=== PATIENT | male | born 1950 | race Caucasian/White ===

== ENCOUNTER 2016-05-28 11:59 | Day surgery (SDC) | payer OTHER, MEDICARE ==
[2016-05-28] VITALS (31 sets, daily range): BP systolic 122–170; BP diastolic 66–88; PULSE 85–117; RESP 12–25; TEMP 97.6–98.4; O2SAT 88–96; Ht 172.7 cm; Wt 93.6 kg
[~2016-05-28] VITALS: Ht 172.7 cm; Wt 93.6 kg
[~2016-05-28 11:59] MED LIST: ATOR20TA18 PO; ERTAPENEM 1 G in NORMAL SALINE 100 ML IV ONE; LIDOCAINE 1% (10mg/ml) 2ml SDV INJ ONE; LR 1,000 ML IV SCH; OMEP-29 PO
--- OUTSIDE RECORDS SUMMARY | 2016-05-28 12:04 | XMS REPORT | Referral Summary ---
Author Author [facility], Family Medicine Organization [facility] Address Unknown Phone Unavailable Care Team Providers Care Leg Breaker Name Role Phone Eleazar Washington Primary Care Physician [phone] Encounter VC Date(s): 12/06/15 - 12/06/15 [facility] [address] [place] [id number] Discharge Diagnosis: Mixed hyperlipidemia Discharge Diagnosis: Hamstring injury Discharge Diagnosis: Claudication, intermittent Discharge Disposition: 01-Home or Self Care Attending Physician: Eleazar Washington DO Admitting Physician: Eleazar Washington DO Vital Signs Most recent to 1 oldest [Reference Range]: Temperature Tympanic 36.2 degC [36.6-38.1 degC] *LOW* (12/06/15 1:20 PM) Peripheral Pulse 89 bpm Rate [60-100 bpm] (12/06/15 1:20 PM) Blood Pressure 117/68 mmHg [90-140/60-90 mmHg] (12/06/15 1:20 PM) Problem List Condition Effective Dates Status Health Status Informant Hyperlipidemia(Confi Active rmed) Hypertension(Confirm Active ed) Obesity(Confirmed) Active patient Allergies, Adverse Reactions, Alerts No Known Medication Allergies Medications acetaminophen as needed for pain, 0 Refill(s) Start Date: 10/05/14 Status: Ordered Aleve mg, Oral, as needed for pain, 0 Refill(s) Start Date: 09/20/14 Status: Ordered atorvastatin 20 mg oral tablet See Instructions, TAKE ONE TABLET BY MOUTH ONCE DAILY, # 90 tabs, 1 Refill(s), eRx: [id number], TAKE ONE TABLET BY MOUTH ONCE DAILY Start Date: 10/31/15 Status: Ordered CoQ10 mg, Oral, Daily, 0 Refill(s) Start Date: 09/20/14 Status: Ordered losartan 50 mg oral tablet See Instructions, TAKE ONE TABLET BY MOUTH ONCE DAILY, # 90 tabs, 1 Refill(s), eRx: [id number], TAKE ONE TABLET BY MOUTH ONCE DAILY Start Date: 10/31/15 Status: Ordered naproxen 500 mg oral tablet 500 mg 1 tabs, Oral, BID, X 30 days, # 60 tabs, 4 Refill(s), Pharmacy: [id number], 1 tabs Oral BID,x30 days Start Date: 12/06/15 Stop Date: 05/04/16 Status: Ordered vitamin E Oral, Daily, 0 Refill(s) Start Date: 09/20/14 Status: Ordered Results No data available for this section Immunizations Vaccine Date Refusal Reason tetanus/diphth/pertuss (Tdap) adult/adol 02/11/09 influenza virus vaccine, inactivated 11/11/13 Procedures Procedure Date Related Diagnosis Body Site S/P right inguinal herniorrhaphy 2012 Colonoscope 02/11/09 S/P left inguinal herniorrhaphy 1994 Social History Social History Type Response Smoking Status Never smoker Assessment and Plan Extracted from: Title: Office Visit Note Author: Eleazar Washington DO Date: 12/06/15 Assessment/Plan Claudication, intermittent 1. History is concerning for peripheral vascular disease 2. Doppler studies of lower extremities Ordered: Office Visit Level 4 Est [address] [facility] Venous Duplex Bilateral Hamstring injury 1. Continue with naproxen twice a day 2. May use Tylenol at thousand milligrams every 8 hours 3. May consider hamstring support 4. If Doppler studies are negative then we plan on sending him to physical therapy Mixed hyperlipidemia 1. Continue with atorvastatin as previous 2. Follow-up lab ordered, report is pending Ordered: CBC w/ Differential Comprehensive Metabolic Panel Hemoglobin A1c Lipid Panel Office Visit Level 4 Est 86507
--- OUTSIDE RECORDS SUMMARY | 2016-05-28 12:05 | XMS REPORT | Referral Summary ---
Author Author [facility] Organization [facility] Address Unknown Phone Unavailable Care Team Providers Care Dryer Feeder Name Role Phone Eleazar Washington Primary Care Physician [phone] Encounter Date(s): 09/20/14 - 09/20/14 [facility] [address] [place] [id number] Discharge Diagnosis: Spinal stenosis Discharge Diagnosis: Hyperlipidemia Discharge Diagnosis: Benign essential HTN Discharge Disposition: 01-Home or Self Care Attending Physician: Esvin Jackson MD Admitting Physician: Esvin Jackson MD Vital Signs Most recent to 1 oldest [Reference Range]: Temperature Tympanic 36.5 degC [36.6-38.1 degC] *LOW* (09/20/14 2:35 PM) Peripheral Pulse 76 bpm Rate [60-100 bpm] (09/20/14 2:35 PM) Respiratory Rate 16 br/min [14-20 br/min] (09/20/14 2:35 PM) Blood Pressure 134/74 mmHg [90-140/60-90 mmHg] (09/20/14 2:35 PM) Problem List Condition Effective Dates Status Health Status Informant Obesity(Confirmed) Active patient Allergies, Adverse Reactions, Alerts No Known Medication Allergies Medications acetaminophen as needed for pain, 0 Refill(s) Start Date: 10/05/14 Status: Ordered Aleve mg, Oral, as needed for pain, 0 Refill(s) Start Date: 09/20/14 Status: Ordered CoQ10 mg, Oral, Daily, 0 Refill(s) Start Date: 09/20/14 Status: Ordered Lipitor 20 mg oral tablet 20 mg 1 tabs, Oral, Daily, # 90 tabs, 3 Refill(s), [id number], 1 tabs Oral Daily Start Date: 10/05/14 Status: Ordered losartan 50 mg oral tablet 50 mg 1 tabs, Oral, Daily, # 90 tabs, 3 Refill(s), [id number], 1 tabs Oral Daily Start Date: 10/05/14 Status: Ordered vitamin E Oral, Daily, 0 Refill(s) Start Date: 09/20/14 Status: Ordered Results No data available for this section Immunizations Vaccine Date Refusal Reason tetanus/diphth/pertuss (Tdap) adult/adol 02/11/09 influenza virus vaccine, inactivated 11/11/13 Procedures Procedure Date Related Diagnosis Body Site Colonoscope 02/11/09 Social History Social History Type Response Smoking Status Never smoker Assessment and Plan Extracted from: Title: Office Visit Note Author: Esvin Jackson MD Date: 09/20/14 Assessment/Plan Benign essential HTN Blood pressure appears to be adequately controlled no change in treatment recommended one-year approval for DOT is given. Hyperlipidemia Chronic stable follow-up with regular PCP. Spinal stenosis Chronic stable no change in current treatment. DOT evaluation We will give him a one-year approval for his DOT. He is borderline on weight as part needing further evaluation per sleep apnea or sleep study. Encouraged to keep his weight under control. He is approved with wearing corrective lenses andfor one year because of his hypertension.
--- OUTSIDE RECORDS SUMMARY | 2016-05-28 12:05 | XMS REPORT | Referral Summary ---
Author Author [facility] Organization [facility] Address Unknown Phone Unavailable Care Team Providers Care Immersion Metalcleaner Name Role Phone Eleazar Washington Primary Care Physician [phone] Encounter Date(s): 09/15/15 - 09/15/15 [facility] [address] [place] 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 Discharge Disposition: 01-Home or Self Care Attending Physician: Frida Stone PA-C Admitting Physician: Frida Stone PA-C Vital Signs Most recent to 1 oldest [Reference Range]: Peripheral Pulse 85 bpm Rate [60-100 bpm] (09/15/15 2:34 PM) Blood Pressure 122/68 mmHg [90-140/60-90 mmHg] (09/15/15 2:34 PM) SpO2 96 % (09/15/15 2:34 PM) Problem List Condition Effective Dates Status [...] Daily, # 90 tabs, 3 Refill(s), [id number], 1 tabs Oral Daily Start Date: 10/05/14 Status: Ordered losartan 50 mg oral tablet 50 mg 1 tabs, Oral, Daily, # 90 tabs, 3 Refill(s), [id number], 1 tabs Oral Daily Start [...] smoker Assessment and Plan Extracted from: Title: Ambulatory Patient Education Author: Frida Stone PA-C Date : 09/15/15 Cardiovascular Dyslipidemia Dyslipidemia is an imbalance of the lipids in your blood. Lipids are waxy, fat- like proteins that your body needs in small amounts. Dyslipidemia often involves the lipids cholesterol or triglycerides. Common forms of dyslipidemia are: High levels of bad cholesterol (LDL cholesterol). LDL cholesterol is the type of cholesterol that causes heart disease. Low levels of good cholesterol (HDL cholesterol). HDL cholesterol is the type of cholesterol that helps protect against heart disease. High levels of triglycerides. Triglycerides are a fatty substance in the blood linked to a buildup of plaque on your arteries. RISK FACTORS Increased age. Having a family history of high cholesterol. Certain medicines, including control pills, diuretics, beta- blockers, and some medicines for depression. Smoking. Eating a high-fat diet. Being overweight. Medical conditions such as diabetes, polycystic ovary syndrome, , kidney disease, and hypothyroidism. Lack of regular exercise. SIGNS AND SYMPTOMS There are no signs or symptoms with dyslipidemia. DIAGNOSIS A simple blood test called a fasting blood test can be done to determine your level of: Total cholesterol. This is the combined number of LDL cholesterol and HDL cholesterol. A healthy number is lower than 200. LDL cholesterol. The goal number for LDL cholesterol is different for each person depending on risk factors. Ask your health care provider what your LDL cholesterol number should be. HDL cholesterol. A healthy level of HDL cholesterol is 60 or higher. A number lower than 40 for men or 50 for women is a danger sign. Triglycerides. A healthy triglyceride number is less than 150. TREATMENT Dyslipidemia is a treatable condition. Your health care provider will advise you on what type of treatment is best based on your age, your test results, and current guidelines. Treatment may include: Dietary changes. A dietitian may help you create a diet that is based on your risk factors, conditions, and lifestyle. Regular exercise. This can help lower your LDL cholesterol, raise your HDL cholesterol, and help with weight management. Check with your health care provider before beginning an exercise program. Most people should participate in 30 minutes of brisk exercise 5 days a week. Quitting smoking. Medicines to lower LDL cholesterol and triglycerides. If you have high levels of triglycerides, your health care provider may: Have you stop drinking alcohol. Have you restrict your fat intake. Have you eliminate refined sugars from your diet. Treat you for other conditions, such as underactive thyroid gland ( hypothyroidism) and high blood sugar (hyperglycemia). Your health care provider will monitor your lipid levels with regular blood tests. HOME CARE INSTRUCTIONS Eat a healthy diet. Follow any diet instructions if they were given to you by your health care provider. Maintain a healthy weight. Exercise regularly based on the recommendations of your health care provider. Do not use any tobacco products, including cigarettes, chewing tobacco, or electronic cigarettes. Take medicines only as directed by your health care provider. Keep all follow-up visits as directed by your health care provider. SEEK MEDICAL CARE IF: You are having possible side effects from your medicines. This information is not intended to replace advice given to you by your health care provider. Make sure you discuss any questions you have with your health care provider. Document Released: 02/02/2014 Document Revised: 02/18/2015 Document Reviewed: [facility] Patient Information 2016 [facility], [facility]. Family Medicine Hypertension Hypertension, commonly called high blood pressure, is when the force of blood pumping through your arteries is too strong. Your arteries are the blood vessels that carry blood from your heart throughout your body. A blood pressure reading consists of a higher number over a lower number, such as 110/72. The higher number (systolic) is the pressure inside your arteries when your heart pumps. The lower number (diastolic) is the pressure inside your arteries when your heart relaxes. Ideally you want your blood pressure below 120/80. Hypertension forces your heart to work harder to pump blood. Your arteries may become narrow or stiff. Having hypertension puts you at risk for heart disease, stroke, and other problems. RISK FACTORS Some risk factors for high blood pressure are controllable. Others are not. Risk factors you cannot control include: Race. You may be at higher risk if you are . Age. Risk increases with age. Gender. Men are at higher risk than women before age 45 years. After age 65, women are at higher risk than men. Risk factors you can control include: Not getting enough exercise or physical activity. Being overweight. Getting too much fat, sugar, calories, or salt in your diet. Drinking too much alcohol. SIGNS AND SYMPTOMS Hypertension does not usually cause signs or symptoms. Extremely high blood pressure (hypertensive crisis) may cause headache, anxiety, shortness of breath , and nosebleed. DIAGNOSIS To check if you have hypertension, your health care provider will measure your blood pressure while you are seated, with your arm held at the level of your heart. It should be measured at least twice using the same arm. Certain conditions can cause a difference in blood pressure between your right and left arms. A blood pressure reading that is higher than normal on one occasion does not mean that you need treatment. If it is not clear whether you have high blood pressure, you may be asked to return on a different day to have your blood pressure checked again. Or, you may be asked to monitor your blood pressure at home for 1 or more weeks. TREATMENT Treating high blood pressure includes making lifestyle changes and possibly taking medicine. Living a healthy lifestyle can help lower high blood pressure. You may need to change some of your habits. Lifestyle changes may include: Following the DASH diet. This diet is high in fruits, vegetables, and whole grains. It is low in salt, red meat, and added sugars. Keep your sodium intake below 2,300 mg per day. Getting at least 3045 minutes of aerobic exercise at least 4 times per week. Losing weight if necessary. Not smoking. Limiting alcoholic beverages. Learning ways to reduce stress. Your health care provider may prescribe medicine if lifestyle changes are not enough to get your blood pressure under control, and if one of the following is true: Your systolic blood pressure is above 150. Your diastolic blood pressure is above 90. You have diabetes, and your systolic blood pressure is over 140 or your diastolic blood pressure is over 85. You have heart disease or have had a stroke or heart attack, and your blood pressure is above 130 over 80, which is written as 130/80. HOME CARE INSTRUCTIONS Have your blood pressure rechecked as directed by your health care provider. Take medicines only as directed by your health care provider. Follow the directions carefully. Blood pressure medicines must be taken as prescribed. The medicine does not work as well when you skip doses. Skipping doses also puts you at risk for problems. Do not smoke. Monitor your blood pressure at home as directed by your health care provider. SEEK MEDICAL CARE IF: You think you are having a reaction to medicines taken. You have recurrent headaches or feel dizzy. You have swelling in your ankles. You have trouble with your vision. SEEK IMMEDIATE MEDICAL CARE IF: You develop a severe headache or confusion. You have unusual weakness, numbness, or feel faint. You have severe chest or abdominal pain. You vomit repeatedly. You have trouble breathing. MAKE SURE YOU: Understand these instructions. Will watch your condition. Will get help right away if you are not doing well or get worse. This information is not intended to replace advice given to you by your health care provider. Make sure you discuss any questions you have with your health care provider. Document Released: 01/28/2006 Document Revised: 02/18/2015 Document Reviewed: [employer] Patient Information 2016 [employer]. No follow up information was provided. 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 Paperwork filled out and copies made. Ordered: Office Visit No Charge- 3044 Hyperlipidemia No issues with medication. F/u with PCP. Ordered: Office Visit No Charge- 3048 Hypertension D/w pt that he needs to talk with his PCP about the cough with ARB. BP is stable. Ordered: Office Visit No Charge- 3045
--- OUTSIDE RECORDS SUMMARY | 2016-05-28 12:05 | XMS REPORT | Referral Summary ---
Author Author [facility] Organization [facility] Address Unknown Phone Unavailable Care Team Providers Care Hair Assistant Name Role Phone Eleazar Washington Primary Care Physician [phone] Encounter VC Date(s): 12/28/15 - 12/28/15 [facility], [address] [place] [address] Discharge Diagnosis: Acute bacterial bronchitis Discharge Disposition: 01-Home or Self Care Attending Physician: Eleazar Washington DO Vital Signs Most recent to 1 oldest [Reference Range]: Temperature Tympanic 37.3 degC [36.6-38.1 degC] (12/28/15 2:18 PM) Peripheral Pulse 99 bpm Rate [60-100 bpm] (12/28/15 2:18 PM) Blood Pressure 142/80 mmHg [90-140/60-90 mmHg] *HI* (12/28/15 2:18 PM) SpO2 94 % (12/28/15 2:18 PM) Problem List Condition Effective Dates Status [...] DAILY, # 90 tabs, 1 Refill(s), eRx: [id number], TAKE ONE TABLET BY MOUTH ONCE DAILY Start Date: 10/31/15 Status: Ordered CoQ10 mg, Oral, Daily, 0 Refill(s) Start Date: 09/20/14 Status: Ordered losartan 50 mg oral tablet See Instructions, TAKE ONE TABLET BY MOUTH ONCE DAILY, # 90 tabs, 1 Refill(s), eRx: [id number], TAKE ONE TABLET BY MOUTH ONCE DAILY Start Date: 10/31/15 Status: Ordered naproxen 500 mg oral tablet 500 mg 1 tabs, Oral, BID, X 30 days, # 60 tabs, 4 Refill(s), Pharmacy: [id number], 1 tabs Oral BID,x30 days Start Date: 12/06/15 Stop Date: 05/04/16 Status: Ordered predniSONE 20 mg oral tablet 40 mg 2 tabs, Oral, Daily, X 5 days, # 10 tabs, 0 Refill(s) Start Date: 12/28/15 Stop Date: 01/02/16 Status: Ordered Promethazine with Codeine 6.25 mg-10 mg/5 mL oral syrup 2.5 mL, Oral, q6hr, as needed for cough, not to exceed 30 mL/24 hours, # 120 mL , 0 Refill(s) Start Date: 12/28/15 Stop Date: 01/27/16 Status: Ordered Tessalon 200 mg oral capsule 200 mg 1 caps, Oral, TID, X 10 days, # 30 caps, 0 Refill(s) Start Date: 12/28/15 Stop Date: 01/07/16 Status: Ordered vitamin E Oral, Daily, 0 [...] Visit Note Author: Eleazar Washington DO Date: 12/28/15 Assessment/Plan Acute bacterial bronchitis 1. Z-Guido, take as directed for 5 days. 2. Prednisone 20mg, two tabs daily for 5 days. 3. Tessalon 200mg, one tab tid for 10 days 4. Promethazine with codeine, 5 mls every 6 hours as needed for coughing. Mainly for nighttime use. Ordered: benzonatate, 200 mg 1 caps, Oral, TID, X 10 days, # 30 caps, 0 Refill(s) predniSONE, 40 mg 2 tabs, Oral, Daily, X 5 days, # 10 tabs, 0 Refill(s) promethazine-codeine, 2.5 mL, Oral, q6hr, as needed for cough, not to exceed 30 mL/24 hours, # 120 mL, 0 Refill(s) Office Visit Level 4 Est 50190
--- OUTSIDE RECORDS SUMMARY | 2016-05-28 12:05 | XMS REPORT | Referral Summary ---
Author Author [facility], Family Medicine Organization [facility] Address Unknown Phone Unavailable Care Team Providers Care Account Receivable Clerk Name Role Phone Eleazar Washington Primary Care Physician [phone] Encounter VC Date(s): 10/05/14 - 10/05/14 [facility], [address] [place] [phone]- Discharge Diagnosis: Adult general medical examination Discharge Diagnosis: HTN (hypertension) Discharge Diagnosis: Combined hyperlipidemia Discharge Disposition: 01-Home or Self Care Attending Physician: Eleazar Washington DO Admitting Physician: Eleazar Wasihngton DO Vital Signs Most recent to 1 oldest [Reference Range]: Temperature Tympanic 37.1 degC [36.6-38.1 degC] (10/05/14 8:45 AM) Peripheral Pulse 84 bpm Rate [60-100 bpm] (10/05/14 8:45 AM) Blood Pressure 128/74 mmHg [90-140/60-90 mmHg] (10/05/14 8:45 AM) Problem List Condition Effective Dates Status Health [...] Daily, # 90 tabs, 3 Refill(s), [id number], 1 tabs Oral Daily Start Date: 10/05/14 Status: Ordered losartan 50 mg oral tablet 50 mg 1 tabs, Oral, Daily, # 90 tabs, 3 Refill(s), Pharmacy: [facility] [id number], 1 tabs Oral Daily Start Date: 10/05/14 Status: Ordered vitamin E Oral, Daily, 0 Refill(s) Start Date: 09/20/14 Status: Ordered Results Hematology Most recent to 1 oldest [Reference Range]: WBC [4.8-10.8 8.4 10*3/uL 10*3/uL] (10/05/14 9:50 AM) RBC [4.60-6.20] 4.80 (10/05/14 9:50 AM) Hgb [14.0-18.0 14.8 gm/dL gm/dL] (10/05/14 9:50 AM) Hct [42.0-52.0 %] 42.7 % (10/05/14 9:50 AM) MCV [82.0-99.0 fL] 89.0 fL (10/05/14 9:50 AM) MCH [27.0-32.0 pg] 30.8 pg (10/05/14 9:50 AM) MCHC [32.0-36.0 34.7 gm/dL gm/dL] (10/05/14 9:50 AM) RDW [11.5-14.5 %] 13.0 % (10/05/14 9:50 AM) Platelet [150-400 242 10*3/uL 10*3/uL] (10/05/14 9:50 AM) MPV [8.8-14.8 fL] 9.6 fL (10/05/14 9:50 AM) Immature 0.4 % Granulocytes (10/05/14 9:50 AM) [0.0-1.0 %] Neutrophils [51-75 60 % %] (10/05/14 9:50 AM) Lymphocytes [20-46 25 % %] (10/05/14 9:50 AM) Monocytes [4-11 %] 10 % (10/05/14 9:50 AM) Eosinophils [0-4 %] 4 % (10/05/14 9:50 AM) Basophils [0-2 %] 0 % (10/05/14 9:50 AM) Neutro Absolute 5.02 10*3 [1.90-7.00 10*3] (10/05/14 9:50 AM) Lymph Absolute 2.09 10*3 [0.80-3.30 10*3] (10/05/14 9:50 AM) [place] Absolute 0.84 10*3 [0.30-1.00 10*3] (10/05/14 9:50 AM) Eos Absolute 0.34 10*3 [0.00-0.50 10*3] (10/05/14 9:50 AM) Baso Absolute 0.03 10*3 [0.00-0.20 10*3] (10/05/14 9:50 AM) Chemistry Most recent to 1 oldest [Reference Range]: Sodium Lvl [135-144 138 mEq/L mEq/L] (10/05/14:50 AM) Potassium Lvl 4.3 mEq/L [3.5-5.2 mEq/L] (10/05/14 9:50 AM) Chloride [99-111 105 mEq/L mEq/L] (10/05/14:50 AM) CO2 [23-31 mEq/L] 30 mEq/L (10/05/14:50 AM) AGAP [3-20] 3 (10/05/14 9:50 AM) BUN [8-26 mg/dL] 16 mg/dL (10/05/14 9:50 AM) Glucose Lvl [70-99 106 mg/dL mg/dL] *HI* (10/05/14 9:50 AM) Creatinine Lvl 0.92 mg/dL [0.72-1.25 mg/dL] (10/05/14 9:50 AM) eGFR [>60 mL/min] >60 mL/min 1 (10/05/14:50 AM) Calcium Lvl 9.2 mg/dL [8.9-10.5 mg/dL] (10/05/14 9:50 AM) Albumin Lvl [3.4-4.8 4.3 gm/dL gm/dL] (10/05/14 9:50 AM) Total Protein 6.7 gm/dL [6.2-8.1 gm/dL] (10/05/14 9:50 AM) Globulin [1.8-4.0 2.4 gm/dL gm/dL] (10/05/14 9:50 AM) ALT [0-55 U/L] 20 U/L (10/05/14 9:50 AM) AST [5-34 U/L] 19 U/L (10/05/14 9:50 AM) Alk Phos [40-150 56 U/L U/L] (10/05/14 9:50 AM) Bili Total [0.2-1.2 0.9 mg/dL mg/dL] (10/05/14 9:50 AM) PSA (wihout Reflex 0.5 ng/mL 2 Free) [0.0-4.5 (10/05/14 9:50 AM) ng/mL] Chol [0-199 mg/dL] 182 mg/dL (10/05/14 9:50 AM) Trig [0-149 mg/dL] 145 mg/dL (10/05/14 9:50 AM) HDL [40-84 mg/dL] 35 mg/dL *LOW* (10/05/14 9:50 AM) LDL [0-130 mg/dL] 118 mg/dL (10/05/14 9:50 AM) VLDL Cholesterol 29 mg/dL [0-28 mg/dL] *HI* (10/05/14 9:50 AM) Cardiac Risk 5.2 [0.0-5.7] (10/05/14 9:50 AM) Hgb A1c [4.1-5.6 %] 5.9 % *HI* (10/05/14 9:50 AM) eAvg Glucose 122.6 mg/dL (10/05/14 9:50 AM) 1Result Comment: Multiply eGFR results by 1.21 for race. 2Result Comment: AUA PSA Best Practice Guidelines: Age-Adjusted PSA Values by Ethnic Group Age Range Asians - Caucasians Americans 40-49 0-2.0 0-2.0 0-2.5 50-59 0-3.0 0-4.0 0-3.5 60-69 0-4.0 0-4.5 0-4.5 70-79 0-5.0 0-5.5 0-6.5 Immunizations Vaccine Date Refusal Reason tetanus/diphth/pertuss (Tdap) adult/adol 02/11/09 influenza virus vaccine, inactivated 11/11/13 Procedures Procedure Date Related Diagnosis Body Site Collection of venous blood by venipuncture 10/05/14 Colonoscope 02/11/09 Social History Social History Type Response Smoking Status Never smoker Assessment and Plan Extracted from: Title: 64 yo Wellness exam Author: Eleazar Washington DO Date: 10/05/14 Assessment/Plan Adult general medical examination 1. This is a well-developed well- nourished 64-year-old gentleman in good health. 2. His next colonoscopy will be due in 5 years. 3. Recommended flu vaccination on a yearly basis. 4. Recommended consideration of shingles vaccination, he was check with his insurance and coverage. 5. Healthy lifestyle with balanced diet and daily exercise recommended, he voiced understanding. 6. Follow-up yearly for well male exam. 7. Labs ordered today to consist of CBC, comprehensive metabolic profile, lipid panel, hemoglobin A1c and PSA. Once we get the results we will discuss with the patient and notify him whenI would like himto follow-up. Over 45 minutes was spent face-face with this patient. More than 50% of the time was spent reviewing his medical history, medications and with recommendations. Ordered: Office Visit Level 5 Est 38127 Combined hyperlipidemia Pathophysiology of this presentation. All questions were answered. 1. Lipid panel ordered today, we will adjust his medication accordingly. 2. Atorvastatin was refilled for one year. Ordered: Office Visit Level 5 Est 06553 HTN (hypertension) Pathophysiology of this presentation. All questions were answered. 1. His blood pressures well controlled today. 2. Continue with current medication, follow-up yearly for the pressure management. 3. Healthy lifestyle changes recommended with healthy balanced diet and daily exercise. 4. Low salt diet recommended. 5. Weight loss recommended. Ordered: CBC w/ Differential Comprehensive Metabolic Panel Hemoglobin A1c Lipid Panel Office Visit Level 5 Est 33656 Prostate Specific Antigen Orders: atorvastatin, 20 mg 1 tabs, Oral, Daily, # 30 tabs, 0 Refill(s), Pharmacy: [id number], 1 tabs Oral Daily losartan, 50 mg 1 tabs, Oral, Daily, # 30 tabs, 0 Refill(s), Pharmacy: [facility] [id number], 1 tabs Oral Daily
--- OUTSIDE RECORDS SUMMARY | 2016-05-28 12:05 | XMS REPORT | Continuity of Care Document ---
Author Author [facility] Organization [facility] Address Unknown Phone Unavailable Allergies Active Description Code Type Severity Reaction Onset Reported/Identified Relationship to Patient Clinical Status Yes ibuprofen Drug Allergy Unknown 01/26/2011 Yes Penicillins Drug Allergy Unknown 01/26/2011 Yes No Known Medication Allergies NKMA N/A N/A 09/20/2014 Medications Problems Procedures Results Test Result Range Comprehensive Metabolic Panel (CMP) - 05/17/16 05:25 Albumin 4.0 g/dL 3.5-4.8 Alkaline Phosphatase 49 U/L 26-104 ALT (SGPT) 16 U/L 17-63 Anion Gap 12 NA 3-20 AST (SGOT) 21 U/L 15-41 Bilirubin Total 0.8 mg/dL 0.2-1.2 BUN 18 mg/dL 4-20 Calcium 8.9 mg/dL 8.6-10.0 Chloride 105 mEq/L 99-109 CO2 21 mEq/L 22-32 Creatinine 0.93 mg/dL 0.64-1.27 Globulin 2.4 g/dL 1.9-4.3 Glucose 140 mg/dL 70-100 Potassium 3.9 mEq/L 3.6-5.1 Protein 6.4 g/dL 6.1-7.9 Sodium 138 mEq/L 136-144 Lipase - 05/17/16 05:25 Lipase 14 U/L 8-48 eGFR - 05/17/16 05:25 eGFR >60 NA >60 CBC With Platelet and Differential - 05/17/16 06:30 Absolute Basophils 0.02 10*3/uL 0.00- 0.20 Absolute Eosinophils 0.30 10*3/uL 0.00- 0.50 Absolute Lymphocytes 0.94 10*3/uL 0.80- 3.30 Absolute Monocytes 1.08 10*3/uL 0.30- 1.00 Absolute Neutrophils 8.96 10*3/uL 1.90- 7.00 Basophils 0 % 0-2 Eosinophils 3 % 0-4 HCT 39.5 % 42.0-52.0 HGB 13.2 g/dL 14.0-18.0 Immature Granulocytes 0.3 % 0.0-1.0 Lymphocytes 8 % 20-46 MCH 30.5 pg 27.0-32.0 MCHC 33.4 g/dL 32.0-36.0 MCV 91.2 fL 82.0-99.0 Monocytes 10 % 4-11 MPV 9.3 fL 9.4-12.3 Neutrophils 79 % 51-75 Nucleated RBC Automated 0.0 /100 WBC Platelet Count 209 K/uL 150-400 RBC 4.33 10*6/uL 4.60-6.20 RDW 12.7 % 11.5-14.5 WBC 11.3 K/uL 4.8-10.8 Urinalysis with reflex microscopic - 05/17/16 07:31 Appearance Clear NA Bilirubin Negative NA Negative Blood Pos 1+ NA Negative Color Yellow NA Glucose, Urine Negative Negative Ketones Negative Negative Leukocyte Esterase Negative NA Negative Nitrites Negative NA Negative pH 5.0 NA 5.0-8.0 Protein Negative NA Negative Specific [place] 1.015 NA 1.003-1.030 UA Collection type Clean Catch NA Urobilinogen Negative mg/dL <1.0 Urine Microscopic - 05/17/16 07:31 Bacteria None Seen NA Epithelial Cells 0 /HPF RBC, Urine 0 /HPF 0-2 WBC, Urine 2 /HPF 0-4 Encounters ACCT No. Visit Date/Time Discharge Status Pt. Type Provider Facility Loc./Unit Complaint [id number] 03/17/2012 13:00:00 2012 23:59:59 CLS Outpatient Tulio Prescott, [facility] PAIN [id number] 03/03/2012 13:30:00 2012 23:59:59 CLS Outpatient Tulio Prescott [facility] PAIN [id number] 01/29/2012 15:20:00 2011 23:59:59 CLS Outpatient Surinder MALDONADO, [facility] HMG.ORT [id number] 11/30/2011 11:26:00 2011 23:59:00 DIS Outpatient Joan Gee DO [facility] IMG.MRI [id number] 11/27/2011 10:56:00 2011 23:59:00 DIS Outpatient Joan Gee DO [facility] IMG.RAD
[2016-05-28] MEDS ORDERED: ONDA4TAB4 PO (13:31)
[2016-05-28] MEDS ORDERED: LOSA50TA52 PO (13:31)
[2016-05-28] MEDS ORDERED: BUPIVACAINE 0.25%/EPI 1:200,000 30ml SDV ONE (13:55)
[2016-05-28] MEDS ORDERED: SALINE FLUSH 10ml SYRINGE ONE ×2 (13:56→15:47)
[2016-05-28] MEDS ORDERED: LIDOCAINE 2% (20mg/ml) 5ml PF SDV ONE (15:13)
[2016-05-28] MEDS ORDERED: ROCURONIUM 50mg/5ml INJECTION IV ONE ×2 (15:13→16:46)
[2016-05-28] MEDS ORDERED: PROPOFOL 200mg 20 ML IV ONE (15:13)
--- NOTE | 2016-05-28 15:13 | ANESPREOP ---
Anesthesia Record Date and Time DATE: 05/28/16 TIME: 15:12 Proposed Surgical Procedure ROBOTIC ASSISTED LAP. DESMOND NPO since: mn Allergies: Coded Allergies: hydrocodone (Verified Adverse Reaction, Unknown, UPSET STOMACH, 05/28/16) ibuprofen (Verified Adverse Reaction, Unknown, UPSET STOMACH, 05/28/16) Uncoded Allergies: PEN VK (Allergy, Unknown, RASH, 05/25/16) Ht/Wt/BMI Height: 5 ' 8.00 " Weight: 91.700 kg BMI: 30.7 kg/m2 Vital Signs Date Time Temp Pulse Resp B/P Pulse Ox O2 Delivery O2 Flow Rate FiO2 05/28/16 13:01 98.1 85 16 153/78 94 Room Air Medications Inpatient Medications Current Medications Medications (Trade) Dose Ordered Sig/Alexandru Start Time Stop Time Status Last Admin Dose Admin Lactated Ringer's (Lactated Ringers) 1,000 ml @ 30 mls/hr Q24H 05/28/16 07:00 05/28/16 14:15 30 MLS/HR Atorvastatin Calcium (Lipitor) 20 Mg Tablet, 20 MG PO HS, (Reported) Last Taken: on 05/25/16 0700 Losartan Potassium (Losartan Potassium) 50 Mg Tablet, 50 MG PO DAILY, (Reported) Last Taken: on 05/28/16 0700 Omeprazole (Prilosec) 20 Mg Capsule.dr, 20 MG PO PRN, (Reported) Last Taken: on Unknown Date & Time Ondansetron HCl (Zofran) 4 Mg Tablet, 4 MG PO Q6H PRN for NAUSEA, (Reported) Last Taken: on 05/27/16 0700 Currently on Beta Danna: No Medical/Surgical History Anesthesia PMH: Reports: *Hypertension (TAKES MEDS), Hiatal Hernia, Obesity, Reflux (IMPROVED, TAKES MED PRN) Smoking Status: Never smoker Use Chewing Tobacco?: No Second Hand Exposure: No Substance Use Type: does not use Alcohol Intake: rarely Past Surgical History Orthopedic Surgeries: No Abdominal Surgeries: Yes - KATELYN. INGUINAL HERNIA Genitourinary Surgeries: No Cardiac Surgeries: No Endocrine Surgeries: No Reproductive Surgeries: No Neurological Surgeries: No Ear Surgeries: No Nose Surgeries: No Throat Surgeries: No Other Surgeries: Yes - COLONOSCOPY Anesthesia Adverse Reactions: FOUND none Family Hx of Anesthesia Advers: none Hx of Motion Sickness: No Physical Exam Respiratory: Bilat breath sounds equal, Lungs clear Cardiovascular: FOUND Regular rate, rhythm, FOUND No murmur Airway Assessment Mallampati Score: II TMD: 3 Fingerbreadths Neck Extension: Fair Overall Assessment: No Airway Concerns ASA: 2 Plan Anesthesia Plan: GETA Discussion Discussed risks/options/alternatives of anesthesia and questions answered. Patient consents. Nursing pain assessment noted. Present: Family Member Attestation Statement Prior to the delivery of any anesthetic medication, I examined the patient, developed the plan, obtained the patient's consent and discussed the risk and benefits of the procedure with the patient/guardian. RUTHY ROCHA PRISON TEACHER May 28, 2016 15:13
[2016-05-28] MEDS ORDERED: FENTANYL 100mcg/2ml INJECTION ONE (15:15)
[2016-05-28] MEDS ORDERED: MIDAZOLAM 2mg/2ml INJECTION ONE (15:15)
[2016-05-28] MEDS ORDERED: DEXAMETHASONE 4mg/ml - 1ml INJECTION ONE (15:44)
[2016-05-28] MEDS ORDERED: ONDANSETRON 4mg/2ml INJECTION ONE (15:44)
[2016-05-28] MEDS ORDERED: HYDROMORPHONE 2mg/ml INJECTION ONE ×2 (15:46→18:00)
[2016-05-28] MEDS ORDERED: PHENYLEPHRINE 10mg/ml INJECTION ONE (15:47)
[2016-05-28] MEDS ORDERED: GLYCOPYRROLATE 0.4mg/2ml INJECTION ONE (17:32)
[2016-05-28] MEDS ORDERED: NEOSTIGMINE 10mg/10ml INJECTION ONE (17:32)
[2016-05-28] MEDS ORDERED: ESMOLOL 100mg/10ml INJECTION IV ONE (17:44)
--- NOTE | 2016-05-28 17:55 | GSPOSTPROC ---
Immediate Operative Note DATE: 05/28/16 TIME: 17:54 Postop Diagnosis: Acute cholecystitis cholelithiasis Surgery Type: Laparoscopic, Robotic Surgical Procedure: Cholecystectomy (with FireFly imagine) Surgeon: Darrell Assisting Surgeon: Earl Martines Anesthesia: Local, General ASA: 2 LAMONT MARTINES APRN May 28, 2016 17:55
[2016-05-28] MEDS ORDERED: ONDANSETRON 4mg/2ml INJECTION IV PRN (18:00)
[2016-05-28] MEDS ORDERED: METOCLOPRAMIDE 10mg/2ml INJECTION IV PRN (18:00)
[2016-05-28] MEDS ORDERED: OMEPRAZOLE 20 MG CAPSULE PO PRN (18:00)
[2016-05-28] MEDS: HYDROMORPHONE 2mg/ml INJECTION IV PRN ×2 (18:36→18:49)
--- NOTE | 2016-05-28 19:37 | ANESPO ---
Post-Op Note Date 05/28/16 Time: 19:35 Status Pt Participated in Evaluation: Pt participated in person Vital Signs Date Time Temp Pulse Resp B/P Pulse Ox O2 Delivery O2 Flow Rate FiO2 05/28/16 19:15 94 12 140/70 94 Nasal Cannula 05/28/16 18:20 6.00 05/28/16 18:01 97.7 Respiratory Function: Airway patent, Regular respirations Cardiovascular Function: Regular pulse Pain Level Intensity: 2 Hydration: IV infusing Complications during Recovery None apparent Post-Anesthesia Notes Patient a little bit anxious in recovery about his daughter seeing him distress. Patient reassured. Follow-Up Instructions Instructions Per Surgeon RUTHY ROCHA CRNA May 28, 2016 19:36
--- NOTE | 2016-05-28 20:10 | NUR ---
Returns to Surgical Unit from Recovery Room following Robotic Laproscopic CHolecstectomy. He is awake and orientated. O2 per NC at 4/L. New bag of LR infuses at 75/cc/hr. Able to move self from gurney to bed with minimal assistance. HOB elevated. Resp. Therapy in. Spirometer used.
--- NOTE | 2016-05-28 20:45 | NUR ---
Pt. awake and alert and orientated. Uses spirometer, takes deep breaths and coughs when asked to do so. O2 at 4/L per NC with oxygen saturation 90-92%. Daughters at bedside. Drinks water. Takes few bites of Chicken Noodle soup; becomes nauseated and gaggy. Does c/o of incisional pain in abdomen. Reglan 10 mg. given IV for nausea; then, Morphine 4 mg given IV for pain. IV fluids of LR continues to infuse at 75/cc/hr.
[2016-05-28] MEDS: MORPHINE SULFATE 4 MG SYRINGE IV PRN (20:48)
[2016-05-28] MEDS: LR 1,000 ML IV SCH (20:54)
--- NOTE | 2016-05-28 21:30 | NUR ---
REGLAN and MORPHINE effective. Pt. is sleeping. HOB elevated. O2 at 4/L per NC. Respirations even, deep and unlabored. O2 sats at 94%.
--- NOTE | 2016-05-28 21:36 | OPNOTEF ---
DATE OF SERVICE 05/28/2016 SURGEON Ren Ramírez MD INSIDE SALES COORDINATOR Earl Martines APRN PREOPERATIVE DIAGNOSIS Symptomatic cholelithiasis. POSTOPERATIVE DIAGNOSIS Acute/chronic cholecystitis. PROCEDURE Robotic-assisted laparoscopic cholecystectomy with use of Firefly biliary imaging. ANESTHESIA General endotracheal. EBL/FLUIDS Please see chart. BRIEF HISTORY/INDICATIONS Mr. Guo is a 65-year-old gentleman whom I saw three days ago/last Saturday as a result of his history for right upper quadrant abdominal pain. Patient had been experiencing a fair amount of right upper quadrant abdominal pain prior to seeing me in the office. He had presented to the emergency room as a result of his history for significant right upper quadrant abdominal pain. While in the emergency room he did undergo radiographic evaluation and was found to have evidence for cholelithiasis. Upon examination the patient was found to have a component of tenderness within the right upper quadrant. As a result of the above indications it was recommended that the patient undergo surgical intervention. Patient presents today to undergo robotic-assisted laparoscopic cholecystectomy. For completeness please refer to information included in the patient's chart. FINDINGS Upon laparoscopy the liver edge smooth without nodularities. Gallbladder was found be quite inflamed. There was a component of pericholecystic edema and significant gallbladder wall thickening. The omentum, stomach and duodenum were somewhat adherent to the gallbladder. The small bowel, colon and peritoneal surfaces which were visualized were without noted abnormalities. Cholecystectomy was able to be completed without incident. NARRATIVE OF PROCEDURE After informed consent was obtained the patient was brought to the operative suite and placed on the table in supine fashion. Abdomen was then prepped and draped in sterile fashion. Formal time-out was then completed. 0.25% Marcaine with epinephrine was injected just beneath the level of the umbilicus. A 2-3 cm curved incision was then made through the area of analgesia. Dissection was carried down to the deep subcuticular tissues to the underlying fascia. Fascia was then grasped with two Bharati clamps and retracted anteriorly. A 1-cm incision was made between the two Bharati clamps. Hemostat was then carefully introduced into the fascial incision and gently spread. A U-stitch was then placed with 0-Vicryl. A 12-mm Alba port was then placed in the peritoneal cavity and pneumoperitoneum was established to a patient pressure of 15 mmHg utilizing carbon dioxide. Next, two additional 8-mm da Ivy ports were then placed within the left upper quadrant and right lower quadrant of the anterior abdominal wall. An additional 5-mm vet assistant port was also placed along the right lateral abdominal wall. Each port site was preinjected with 0.25% Marcaine with epinephrine and placed under direct visualization. The patient was then placed within reverse Trendelenburg and rotated towards his left. The da Ivy robot was then brought forth over the patient's right shoulder at a 45-degree angle and docked. Abdominal cavity was explored via the laparoscope. Findings were as noted above. I grasped the fundal portion of the gallbladder and retracted the gallbladder in a cephalad fashion. I then had my vet assistant grasp the fundal portion of the gallbladder and continue to retract it in a cephalad fashion. As stated above, there were some adhesions between the omentum, adjacent small bowel and stomach. These adhesions were taken down bluntly as well as with use of electrocautery. At no point in time was electrocautery performed adjacent to a hollow viscus such as the transverse colon, duodenum or stomach. Eventually the omentum and surrounding viscus were able to be carefully dissected away from the gallbladder. I then had my vet assistant grasp near the midportion of the gallbladder to retract the infundibular portion of the gallbladder further up into the surgical field. The patient's infundibulum was larger than normal and did overlap the cystic duct and was likely adjacent to the common bile duct. The infundibular portion of the gallbladder was then grasped and retracted in a cephalad and lateral fashion as well. Dissection was then begun high upon the infundibulum of the gallbladder. Dissection was somewhat difficult as a result of the marked inflammatory changes that were present. There was a considerable amount of gallbladder wall thickening and pericholecystic fluid or edema. Dissection was continued until the critical view of safety had been obtained. One could see a small vessel that entered into the infundibular portion of the gallbladder. This vessel was smaller than one typically would see with the cystic artery and was only on the order of about 3-4 mm in diameter. One, however, could see that there were pulsations and it did not fluoresce with Firefly biliary imaging. The cystic duct, however, did fluoresce quite well coming forth from the infundibulum of the gallbladder. The cystic duct had been dissected circumferentially. Cystic duct was of a small length and there was perhaps only about 1 cm between the infundibulum of the gallbladder and the cystic duct/common bile duct junction. Once the critical view of safety had been obtained, a single Hem-o-Roni clip was then placed upon the cystic duct adjacent to the infundibular portion of the gallbladder. An additional Hem-o-Roni clip was then placed proximally. An additional Hem-o-Roni clip was then placed upon this small vessel that coursed into the midportion of the infundibulum of the gallbladder. The Hem-o-roni clip was placed adjacent to the midportion of the infundibulum of the gallbladder and an additional Hem-o-roni clip was placed just proximally. The cystic artery and cystic duct were then divided between the two clips. Dissection was then continued to be carried out and the infundibulum of the gallbladder was begun to be dissected carefully off the liver bed fossa. One could then see an additional structure posterior to the infundibulum of the gallbladder upon the liver bed fossa that was pulsating. This structure that was pulsating did not fluoresce with biliary imaging. The structure was continued to be dissected out until it entered into the posterior aspect of the gallbladder. An attempt was made in dissecting around the vessel and leaving it intact behind the gallbladder wall adjacent to the liver bed. A fair amount of time was spent trying to dissect this vessel out. Upon further dissection, however, one could see that the vessel did indeed enter into the posterior aspect of the infundibulum of the gallbladder. A small rent was created within the gallbladder during the process of dissection in an attempt to leave the vessel intact. This would be considered to be inherent to the procedure itself. After a moderate on time of dissection I elected to proceed with ligation of this vessel as it coursed into the posterior aspect of the infundibulum of the gallbladder. A Hem-o-roni clip was placed upon this vessel adjacent to the posterior aspect of the infundibular portion of the gallbladder. An additional Hem-o-roni clip was then placed proximally. This vessel was larger and perhaps on the order of 4-5 mm in diameter. The vessel was then ligated between the two Hem-o-roni clips. One could clearly see the vessel pulsating once it had been divided. Additional attention was focused to the liver before ligation of this vessel and there was no demarcation of the surface of Sherri's capsule to suggest a component of vascular compromise, i.e., this did not appear to be an aberrant right hepatic artery. The gallbladder was then now able to be dissected off the liver bed towards the fundal portion of the gallbladder. At the fundal portion of gallbladder the posterior aspect of the gallbladder wall appeared to have a component of some gangrene and was of poor integrity. A portion of the gallbladder wall was left intact to the liver bed fossa secondary to the fact that there was no good tissue plane that was present. Gallbladder was eventually able to be dissected completely off of the liver bed. The small remaining portion of gallbladder that was still adherent to the liver bed within the fundal portion of the gallbladder was on the order about 1.5 to 2 cm in greatest diameter. The mucosa at the site was cauterized/obliterated. Irrigation was performed and all irrigant was suctioned until clear. Gallbladder fossa was hemostatic in nature. A Hem-o-roni clip upon the cystic duct remained to be intact. Cystic duct remained to fluoresce with Firefly biliary imaging. One could also see the two additional Hem-o-Roni clips upon the small vessels that remained to be pulsating in nature. All irrigant was suctioned until clear. The robot was then undocked. The gallbladder was then removed from the infraumbilical port site. The Alba port was then replaced and the gallbladder fossa was again inspected by holding the laparoscope. The gallbladder fossa remained to be hemostatic in nature. The previously placed Hem-o-Roni clips also were visualized and remained to be intact. Next, the remaining ports were removed under direct visualization. The previously placed U-stitch was secured, imbricating the fascia at the infraumbilical port site. All skin incisions were closed in a subcuticular fashion with 4-0 Monocryl. Dermabond was placed overlying the incisions. The patient is in the process of awakening from his anesthetic and will be sent back to the recovery room once deemed in stable condition. Additionally, it should be noted that Earl Martines APRN, was present throughout the entire case and played a pivotal role in providing assistance and exposure during the course of the procedure. HARI
[2016-05-28] MEDS ORDERED: ATORVASTATIN 20 MG TABLET PO SCH (22:00)
--- NOTE | 2016-05-28 23:00 | NUR ---
Awakens. Reports feeling better. Voids 200 cc. clear yellow urine. Drinks apple juice and eats pudding.
--- NOTE | 2016-05-28 23:35 | NUR ---
Sits at side of bed to eat snack. Ambulates in hallway with portable oxygen and stand by assistance. Initially, pt. was dizzy when he stood up and took the first few steps. He did walk 100 ft. with a few rest breaks due to shortness of breath.
[2016-05-29] VITALS (7 sets, daily range): BP systolic 126–140; BP diastolic 68–79; PULSE 88–98; RESP 18–20; TEMP 97.2–98.2; O2SAT 93–97
--- NOTE | 2016-05-29 00:05 | NUR ---
has sit at side of bed for past 30 minutes. Drinks apple juice and eats crackers. SPO2 at 97% with O2 at 4/L per NC. Good air movement through out lung anrdt. Uses Spirometer. Takes deep breath and coughs when asked to do so. Oxygen titrated down to 3/L.
--- NOTE | 2016-05-29 03:48 | NUR ---
Awake watching television. V/S checked. O2 at 3/L per NC. SPO2 reads 97%. O2 titrated down to 2/L per NC.
[2016-05-29] MEDS: MORPHINE SULFATE 4 MG SYRINGE IV PRN (05:28)
--- NOTE | 2016-05-29 05:30 | NUR ---
Awake and uncomfortable. C/O of thirst. Sits at side of bed; drinks [place] soda. Denies need to eat food. Assisted with repositioning in bed to promote comfort. Pt. does request pain medication. MORPHINE 4 mg. IV administered.
[2016-05-29 06:14] LABS: BASOPHILS % (AUTO) 0.1 % (0-2); HCT - HEMATOCRIT 37.2 % (41-53); HGB - HEMOGLOBIN 12.2 GM/DL (13.5-17.5); IMMATURE GRANULOCYTE # (AUTO) 0.03 T/MM3 (0.00-0.03); IMMATURE GRANULOCYTE % (AUTO) 0.3 % (0.0-0.5); LYMPHOCYTES # (AUTO) 1.2 T/MM3 (1-4.8); LYMPHOCYTES % (AUTO) 10.6 % (23-45); MEAN CORPUSCULAR HGB CONC(MCHC 32.8 GM/DL (31-37); MEAN CORPUSCULAR VOLUME 91.6 UM3 (80-100); MEAN PLATELET VOLUME 9.2 UM3 (9.4-12.4); MONOCYTES # (AUTO) 0.9 T/MM3 (0-0.8); MONOCYTES % (AUTO) 7.7 % (0-9.0); NEUTROPHILS #(AUTO)-ABSOLUTE 9.6 T/MM3 (1.8-7.7); NEUTROPHILS % (AUTO) 81.3 % (33-66); RED BLOOD COUNT 4.06 M/MM3 (4.50-5.90); WBC - WHITE BLOOD COUNT 11.7 T/MM3 (4.5-11.0)
[2016-05-29 06:27] LABS: ALBUMIN 3.4 G/DL (3.5-5.0); ALBUMIN/GLOBULIN RATIO 1.2 RATIO (1.1-2.2); ALKALINE PHOSPHATASE 66 U/L (38-126); ALT (SGPT) 38 U/L (21-72); ANION GAP 11 MEQ/L (5-15); AST (SGOT) 36 U/L (17-59); BUN/CREATININE RATIO 15 RATIO (6-26); CALCIUM 8.8 MG/DL (8.4-10.2); CHLORIDE 102 MEQ/L (98-107); CO2 - CARBON DIOXIDE 27 MEQ/L (22-30); CREATININE 0.8 MG/DL (0.8-1.5); GLOMERULAR FILTRATION RATE 97; GLUCOSE 135 MG/DL (75-110); POTASSIUM 4.3 MEQ/L (3.6-5); SODIUM 140 MEQ/L (134-144); TOTAL PROTEIN 6.2 G/DL (6.3-8.2)
--- NOTE | 2016-05-29 06:40 | NUR ---
END OF SHIFT SUMMARY: Oxygen titrated down to 2/L per NC. Becomes dyspnic with activity/exertion. )2 sats decrease with activity/exertion. Ambulated in hallway (approx 100 feet) with use of oxygen and stand by assistance. Laproscopic incisions remain sealed with [place]ond. Has recieved MORPHINE X 2 this shift. Recieved REGLAN once at the beginning of this shift for nausea. Has tolerated food and fluid well since administration of Reglan. Voids hazy yellow urine. Uses spirometer, takes deep breaths and coughs when asked to do so. IV site to left hand/wrist, is assymtomatic, patent and infusing NS at 75 cc/hr. Morphine administered at 0530 effective as pt is sleeping quietly. o2 at 2/L per NC. SPO2 93%.
[2016-05-29] MEDS ORDERED: LOSARTAN 50 MG TABLET PO SCH (09:00)
[2016-05-29] MEDS ORDERED: OXYC-293 PO (09:17)
[2016-05-29] MEDS ORDERED: OXYC1TAB8 PO (09:21)
--- NOTE | 2016-05-29 09:25 | PNSURG ---
Subjective DATE: 05/29/16 TIME: 09:22 Interval History Post lap carlito. Ate a regular breakfast. States pain is "not bad." He is still on oxygen at 2 liters with sats 92-93%, nursing will see if he can be weaned down. Discussed post op limitations and expectations. Will DC to home when meets criteria and follow up with Darrell in 1 week to discuss return to work in more detail after he has a change to discuss requirements from his employer. Objective Vital Signs Date Time Temp Pulse Resp B/P Pulse Ox O2 Delivery O2 Flow Rate FiO2 05/29/16 07:14 97.7 98 20 126/69 94 Nasal Cannula 2.00 Height (Feet): 5 Height (Inches): 8.00 Weight (Kilograms): 93.600 BMI 30.7 General Appearance: Alert, Orientated x 3 Comments STill on oxygen 2 liters Abdominal Brief: FOUND: appropriately tender (at trocar sites) Incision: FOUND: Clean, Dry, Intact, open to air (Dermabond in tact), NOT FOUND : erythema Laboratory Item Value Date Time Alanine Aminotransferase (ALT/SGPT) 38 U/L 05/29/16 0546 Aspartate Amino Transf (AST/SGOT) 36 U/L 05/29/16 0546 Total Bilirubin 0.50 MG/DL 05/29/16 0546 Laboratory Tests 05/29/16 05:46 Laboratory Tests 05/29/16 05:46 GS Assessment & Plan Assessment Post lap carlito. CMP looks good, no evidence of liver shock. Ate a regular breakfast. States pain is "not bad." He is still on oxygen at 2 liters with sats 92-93%, nursing will see if he can be weaned down. Discussed post op limitations and expectations. Will DC to home when meets criteria and follow up with Darrell in 1 week to discuss return to work in more detail after he has a change to discuss requirements from his employer. Code Status Full Code Hospital Course Summary Disclaimer The visit summary below is not to be considered part of the above Progress Note. LAMONT DUMAS APRN May 29, 2016 09:25
--- NOTE | 2016-05-29 09:26 | NUR ---
CM CM IN TO VISIT WITH PT. HE IS ALERT AND ORIENTED. HE PLANS TO DC HOME. HE DENIES DC NEEDS. HE IS GIVEN CM CONTACT INFORMATION. Addendum: 05/29/16 at 0926 by URIEL ANNE RN Amended: Links added.
[2016-05-29] MEDS: LR 1,000 ML IV SCH (09:54)
[2016-05-29] MEDS: OXYCODONE/APAP 5mg/325mg TABLET PO PRN ×2 (11:50→16:00)
--- NOTE | 2016-05-29 16:14 | NUR ---
DISCHARGE PT DISCHARGED TO HOME IN GOOD CONDITION. PT STABLE. ON RA, DENIES SOA. O2 SAT RANGING 92-94%. PT TOLERATING REGULAR DIET WELL. DENIES NAUSEA. PRN PERCOCET GIVEN, PT STATES IT HELPS TO RELIEVE PAIN. REVIEWED DISCHARGE TEACHING WITH PT AND DAUGHTER. PT'S QUESTIONS ANSWERED AND PT VERBALIZED UNDERSTANDING. PT EXITED BY WHEELCHAIR ACCOMPANIED BY NURSING STAFF AND DAUGHTER.
== END 2016-05-29 16:00 | disposition home or self-care (01) ==
LOC: SCU 11:59 → SRG 17:49 → SCU 05-29 16:00
PROVIDERS: ATTEND Surgery
DX: K80.00 Calculus of gallbladder with acute cholecystitis without obstruction (principal); K66.0 Peritoneal adhesions (postprocedural) (postinfection); I10 Essential (primary) hypertension; E78.5 Hyperlipidemia, unspecified; K21.9 Gastro-esophageal reflux disease without esophagitis; K44.9 Diaphragmatic hernia without obstruction or gangrene; Z79.899 Other long term (current) drug therapy; Z88.0 Allergy status to penicillin; Z88.5 Allergy status to narcotic agent; Z88.6 Allergy status to analgesic agent
CPT/HCPCS: 36415; 47562; 80053; 85025; 94667; J0330; J1100; J1170; J1335; J2250; J2370; J2405; J2704; J2710; J2765; J3010; J7030; J7050; J7120; S2900